=== PATIENT | female | born 1975 | race Caucasian/White ===

== ENCOUNTER → 2022-02-14 | Outpatient (CLI) | payer BC ==
[~2022-02-14] MED LIST: ADIPEX; AZIT250 PO; BCP; HYDACE5 PO; NAPR500 PO; PENVK500 PO; PHENTERMINE; PROM25 PO; TRAM50 PO
== END | disposition home or self-care (01) ==
LOC: LAB SHORT 15:36
DX: N89.8 Other specified noninflammatory disorders of vagina (principal); R31.9 Hematuria, unspecified
CPT/HCPCS: 87070; 87086

== ENCOUNTER → 2022-02-21 | Outpatient (CLI) | payer BC ==
[2022-02-22 09:52] LABS: Candida species (DNA Probe) Negative (NEGATIVE); G. vaginalis (DNA Probe) Positive (NEGATIVE); T. vaginalis (DNA Probe) Negative (NEGATIVE)
== END | disposition home or self-care (01) ==
LOC: LAB SHORT 15:26 → LAB 15:26
PROVIDERS: Obstetrics & Gynecology
DX: N89.8 Other specified noninflammatory disorders of vagina (principal)
CPT/HCPCS: 87480; 87510; 87660

== ENCOUNTER → 2024-12-13 | Outpatient (CLI) | payer BC | END | disposition home or self-care (01) | LOC: LAB SHORT 10:15 → LAB 10:15 | DX: R30.0 Dysuria (principal) | CPT/HCPCS: 87077; 87086; 87186 ==

== ENCOUNTER 2025-09-20 20:21 | Emergency (ER) | payer BC ==
[~2025-09-20] VITALS: Ht 170.2 cm; Wt 85.7 kg
[2025-09-20 20:45] VITALS: BP 165/90
[2025-09-20] MEDS ORDERED: NS 1,000 ML IV SCH ×2 (20:50→22:25)
[2025-09-20] MEDS ORDERED: Metoclopramide HCl 5MG / ML 2ML Vial IV ONE (20:50)
[2025-09-20] MEDS ORDERED: DiphenhydrAMINE HCl 50 MG/ML 1ML Vial IV ONE ×2 (20:55→22:25)
[2025-09-20] MEDS ORDERED: Ketorolac Tromethamine 15mg Vial IV ONE ×2 (20:55→22:25)
[2025-09-20] MEDS ORDERED: Prochlorperazine Edisylate 10 mg Vial IV ONE (22:25)
== END 2025-09-21 00:26 | disposition home or self-care (01) ==
LOC: ER 20:21
DX: G43.909 Migraine, unspecified, not intractable, without status migrainosus (principal); Z79.899 Other long term (current) drug therapy
CPT/HCPCS: 70450; 96374; 96375; 99284-25; J1200; J1885; J2765; J7030